=== PATIENT | female | born 1975 ===

== ENCOUNTER 2019-09-28 13:47 | Emergency (ER) | payer SELFPAY ==
[2019-09-28 14:13] VITALS: BP 110/68; PULSE 103; RESP 16; TEMP 36.5; O2SAT 98; BMI 18.3
--- NOTE | 2019-09-28 14:42 | ED_ITS ---
HPI - Animal Bite General: Chief Complaint: Animal Bite Stated Complaint: dog bite Time Seen by Provider: 09/28/19 14:42 Source: patient Mode of arrival: ambulatory Limitations: no limitations History of Present Illness: HPI narrative: Patient is a 44-year-old female presents to ED today for evaluation following a dog bite. Patient states she was at a friend's house picking cherries when a dog came up and bit the back of her right upper arm. Patient states she is aware the instructor extension work of the dog and will contact him for quarantine. She refuses rabies postexposure prophylaxis at this time. She states her tetanus is up-to-date. complaint: animal bite Onset (ago): hour(s) Animal: dog Description of animal: immunizations unknown and appeared well Mechanism: bite Location - Extremities: Right: arm Context: unprovoked Associated symptoms: Reports no associated symptoms Related Data: Patient tetanus UTD: Yes Review of Systems Musc: Reports: extremity pain Skin/Breast: Reports: other (several dog bites/lacerations/puncture jung to R upper arm) Neuro: Denies: numbness in extremities, weakness in extremities or sensory changes Physical Exam Const: COMMON NORMALS: no acute distress, patient oriented x3, no limitations and alert Extremity: OTHER: pt with 4 total gapping lacerations to dorsal R arm (see laceration repairs for measurements); 1-2 small puncture jung present; no bleeding; extremity NV intact Neuro: COMMON NORMALS: patient oriented x3, moves all extremities, no focal motor deficits and no sensory deficits noted SENSORIUM/ORIENTATION: Yes alert Skin: OTHER: see extremity assessment Procedures Laceration Laceration 1: Site: upper extremity Side (If applicable): right Size (cm): 1.5 Description: linear Depth: simple, single layer Local Anesthetic: lidocaine 1% Amount of anesthesia used (mL): 1.0 Pre-repair: wound explored and irrigated extensively Skin layer closed with: nylon Size (cm): 4-0 Number of sutures: 2 Technique: simple, interrupted Laceration 2: Site: upper extremity Side (If applicable): right Size (cm): 1.5 Description: linear Depth: simple, single layer Local Anesthetic: lidocaine 1% Amount of anesthesia used (mL): 1.0 Pre-repair: wound explored and irrigated extensively Skin layer closed with: nylon Size (cm): 4-0 Number of sutures: 2 Technique: simple, interrupted Laceration 3: Site: upper extremity Side (If applicable): right Size (cm): 2.0 Description: linear Depth: simple, single layer Local Anesthetic: lidocaine 1% Amount of anesthesia used (mL): 1.0 Pre-repair: wound explored and irrigated extensively Skin layer closed with: nylon Size (cm): 4-0 Number of sutures: 3 Technique: simple, interrupted Laceration 4: Site: upper extremity Side (If applicable): right Size (cm): 4.0 Description: linear Depth: simple, single layer Local Anesthetic: lidocaine 1% Amount of anesthesia used (mL): 2.0 Pre-repair: wound explored and irrigated extensively Skin layer closed with: nylon Size (cm): 4-0 Number of sutures: 7 Technique: simple, interrupted Course Vital Signs: Vital signs: Vital Signs Temperature 97.7 F 09/28/19 14:13 Pulse Rate 83 09/28/19 15:50 Respiratory Rate 17 09/28/19 15:50 Blood Pressure 105/69 09/28/19 15:50 Pulse Oximetry 99 09/28/19 15:50 MDM - Animal Bite MDM Narrative: Medical decision making narrative: Patient's tetanus was up-to-date. She is refusing rabies PEP. Lacerations were loosely closed as documented. She will be placed on Augmentin. Wound care discussed at home. Return to ED precautions given. Imaging Data^: XR R humerus: Radiologist's impression: [place] [address] XRay Report Signed Patient: Mena Singletary Unit #: [id number] : 1975 Age/Sex: 44 / F ADM Date: 09/28/19 Loc: ER Room/Bed: Attending Dr: Ordering Provider/Ordering MD: Dena Carl Date of Service: 09/28/19 Procedure(s): [place] [id number] Accession Number(s): [id number] Report Number: [id number] PROCEDURE INFORMATION: Exam: XR Right Humerus Exam date and time: 09/28/2019 3:09 PM Age: 44 years old Clinical indication: Injury or trauma; Injury history: Multiple dog bites; Initial encounter; Arm, upper; Right; Injury date: 09/28/19 TECHNIQUE: Imaging protocol: XR Right humerus Views: 2 or more views. COMPARISON: No relevant prior studies available. FINDINGS: Bones/joints: Negative for acute bony abnormality Soft tissues: Lacerations seen in the medial aspect of the proximal arm. No evidence of soft tissue foreign bodies are seen. XR/[place] [id number] IMPRESSION: 1. Soft tissue laceration proximal medial arm 2. Negative for soft tissue foreign body 3. Negative for acute bony abnormality Dictated By: Suman Martin Signed By: Suman Martin Signed Date/Time: 09/28/19 1546 DD/ 154 Discharge Plan Discharge Patient Disposition: Home Clinical Impression: Dog bite of multiple sites of right upper arm Qualifiers: Encounter type: initial encounter Qualified Code(s): S41.151A - Open bite of right upper arm, initial encounter Condition: Stable Prescriptions: New Augmentin 875-125 mg tablet 1 tab PO Q12H 7 Days Qty: 14 RF: 0 No Action alprazolam 1 mg Tablet 1 mg PO BID PRN (Reason: Agitation) RF: 0 ibuprofen 600 mg Tablet 600 mg PO PRN RF: 0 Discharge Orders: Discharge Order (Routine); Ordered 09/28/19 Ordered By: Dena Carl Referrals: Sonali Rosales APN [Primary Care Provider] - Patient Instructions: Animal Bite (ED), Suture Care (ED), Laceration (ED) Activity Restrictions/Additional Instructions: As discussed your dog bite lacerations were loosely closed. Please keep them clean with warm soapy water several times daily. Fill and begin your antibiotics immediately. Monitor for signs of infection such as redness, swelling, drainage. Sutures need to be removed in 10 days. Discharge Date/Time: 09/28/19 15:51 Coding Level of Care Code ED Photocopying Machine Operator for Yeny Hernandez Exam Expanded Problem Focused
--- NOTE | 2019-09-28 14:48 | XRR_ITS ---
PROCEDURE INFORMATION: Exam: XR Right Humerus Exam date and time: 09/28/2019 3:09 PM Age: 44 years old Clinical indication: Injury or trauma; Injury history: Multiple dog bites; Initial encounter; Arm, upper; Right; Injury date: 09/28/19 TECHNIQUE: Imaging protocol: XR Right humerus Views: 2 or more views. COMPARISON: No relevant prior studies available. FINDINGS: Bones/joints: Negative for acute bony abnormality Soft tissues: Lacerations seen in the medial aspect of the proximal arm. No evidence of soft tissue foreign bodies are seen. XR/[place] [id number] IMPRESSION: 1. Soft tissue laceration proximal medial arm 2. Negative for soft tissue foreign body 3. Negative for acute bony abnormality
[2019-09-28] MEDS: lidocaine 2% INJ 20 mL INJECTION (14:54)
--- NOTE | 2019-09-28 15:03 | PC.NURSE ---
XR performed at
--- NOTE | 2019-09-28 15:34 | PC.NURSE ---
KARINE Fernandes at bedside suturing wounds
[2019-09-28 15:50] VITALS: BP 105/69; PULSE 83; RESP 17; O2SAT 99
== END 2019-09-28 15:51 | disposition home or self-care (01) ==
PROVIDERS: Emergency Provider Physician Assistant; PCP Nurse Practitioner
DX: S41.151A Open bite of right upper arm, initial encounter (principal); W54.0XXA Bitten by dog, initial encounter
CPT/HCPCS: 12004; 12345; 73060; 99282; 99283